=== PATIENT | male | born 1990 | race Caucasian/White ===

== ENCOUNTER 2018-08-25 15:29 | Emergency (ER) | payer OTHER ==
[~2018-08-25] VITALS: Ht 182.9 cm; Wt 89.2 kg
[2018-08-25 16:12] VITALS: BP 135/82
== END 2018-08-25 17:20 | disposition home or self-care (01) ==
LOC: ED 17:14
DX: S61.215D Laceration without foreign body of left ring finger without damage to nail, subsequent encounter (principal); X58.XXXD Exposure to other specified factors, subsequent encounter
CPT/HCPCS: 99281

== ENCOUNTER 2020-02-23 00:12 | Emergency (ER) | payer MEDICAID ==
[~2020-02-23] VITALS: Ht 182.9 cm; Wt 98.2 kg
[2020-02-23 00:16] VITALS: BP 129/87
[2020-02-23] MEDS ORDERED: FLUORESCEIN OPHTHALMIC 1 MG STRIP EACHEYE ONE (00:30)
[2020-02-23] MEDS ORDERED: PROPARACAINE OPHTH 0.5%, 15ML EACHEYE ONE (00:30)
--- NOTE | 2020-02-23 00:52 | NUR ---
Pt alert and resting on gurney. Pt reports left eye irritation and pain from getting fluid in it at work. Eye irrigation started. NAD noted.
--- NOTE | 2020-02-23 00:53 | NUR ---
Medications at bedside for provider.
--- NOTE | 2020-02-23 01:36 | NUR ---
Pt continues to tolerate eye irrigation.
--- NOTE | 2020-02-23 02:07 | NUR ---
Irrigation finished. Pt tolerated well.
== END 2020-02-23 02:29 | disposition home or self-care (01) ==
LOC: ED 00:57
DX: H10.212 Acute toxic conjunctivitis, left eye (principal)
CPT/HCPCS: 99283

== ENCOUNTER 2020-03-19 16:36 | Emergency (ER) | payer MEDICAID ==
[~2020-03-19] VITALS: Ht 185.4 cm; Wt 96.1 kg
[2020-03-19 16:40] VITALS: BP 133/78
--- NOTE | 2020-03-19 18:12 | NUR ---
PT TO ROOM.
--- NOTE | 2020-03-19 18:48 | NUR ---
PT IN US AT THIS TIME.
== END 2020-03-19 19:46 | disposition home or self-care (01) ==
LOC: ED 18:24
DX: L20.9 Atopic dermatitis, unspecified (principal); M79.605 Pain in left leg
CPT/HCPCS: 99284

== ENCOUNTER 2021-03-01 12:35 | Emergency (ER) | payer MEDICAID ==
[~2021-03-01] VITALS: Ht 182.9 cm; Wt 107.3 kg
--- NOTE | 2021-03-01 13:11 | NUR ---
TRADE ANALYST: PT TO ROOM FROM [facility]
[2021-03-01 13:19] VITALS: BP 122/77
--- NOTE | 2021-03-01 13:19 | NUR ---
PT AMBULATED TO ROOM WITH UPRIGHT, STEADY GAIT. PT CONNECTED TO MONITORS. CALL LIGHT WITHIN REACH. NO NEEDS AT THIS TIME.
--- NOTE | 2021-03-01 14:04 | NUR ---
Patient given discharge instructions and they have confirmed that they understand the instructions. Patient ambulatory with steady gait.
== END 2021-03-01 14:05 | disposition home or self-care (01) ==
LOC: ED 13:58
DX: S53.401A Unspecified sprain of right elbow, initial encounter (principal); M79.621 Pain in right upper arm; F17.210 Nicotine dependence, cigarettes, uncomplicated; X58.XXXA Exposure to other specified factors, initial encounter; Y93.89 Activity, other specified; Y92.89 Other specified places as the place of occurrence of the external cause; Y99.8 Other external cause status
CPT/HCPCS: 99282; 99406